=== PATIENT | male | born 1975 | race Caucasian/White ===

== ENCOUNTER 2016-06-11 07:42 | Emergency (ER) | payer SELFPAY ==
[~2016-06-11] VITALS: Ht 165.1 cm; Wt 96.3 kg
[2016-06-11 07:55] VITALS: BP 141/95; PULSE 62; RESP 16; TEMP 98.6; O2SAT 99
--- NOTE | 2016-06-11 08:45 | PD ---
HPI Chief Complaint: ENT Complaint Time Seen by Provider: 08:44 Travel History International Travel<30 days: No Contact w/Intl Traveler<30days: No Traveled to known affect area: No History of Present Illness HPI 40-year-old male came to the emergency room with history of sore throat since this morning. No history of vomiting or diarrhea. No history of fever or chills. He is eating and drinking okay. When he woke up he felt like he was having difficulty swallowing and breathing. Patient is otherwise healthy. He appears to be comfortable and in no obvious distress. He points to the upper part of his throat. Vitals were stable. FORMERLY [facility] Past Medical History Narrative Medical List of his past medical history is reviewed from the nursing note. Heart Rhythm Problems: No Cardiac Catheterization: No Cardiovascular Problems: No High Cholesterol: No Congestive Heart Failure: No Diabetes: No Diminished Hearing: No Hypertension: No Kidney Stones: Yes Integumentary: Yes (MRSA INFECTION 8 YEARS AGO IN LEG AND NOSE) Immunizations Current: Yes Myocardial Infarction: No PNEUMOCCOCAL Vaccine (Year): 1 Past Surgical History Coronary Artery Bypass Graft: No Oral Surgery: Yes (WISDOM TEETH) Other Surgery: Yes (hernia repair age 4) Family History Family Myocardial Infarction: Yes (MOTHER MO; BYPASS *3) Social History Alcohol Use: No Tobacco Use: No (QUIT 2000) Substance Use: No Allergies-Medications (Allergen,Severity, Reaction): Coded Allergies: Penicillin (Verified Allergy, Mild, ITCHING, 06/11/16) Comments List of his allergies reviewed from the nursing note. Reported Meds & Prescriptions Reported Meds & Active Scripts Active No Active Prescriptions or Reported Medications Narrative Medication List of his home medications reviewed from the nursing note. Review of Systems Except as stated in HPI: all other systems reviewed are Neg Physical Exam Narrative GENERAL: Awake, alert, no obvious distress SKIN: Warm and dry. HEAD: Atraumatic. Normocephalic. EYES: Pupils equal and round. No scleral icterus. No injection or drainage. ENT: No nasal bleeding or discharge. Mucous membranes pink and moist. No erythema or exudates. No lymphadenopathy, no tonsillar adenopathy NECK: Trachea midline. No JVD. CARDIOVASCULAR: Regular rate and rhythm. No murmur appreciated. RESPIRATORY: No accessory muscle use. Clear to auscultation. Breath sounds equal bilaterally. GASTROINTESTINAL: Abdomen soft, non-tender, nondistended. Hepatic and splenic margins not palpable. MUSCULOSKELETAL: No obvious deformities. No clubbing. No cyanosis. No edema. NEUROLOGICAL: Awake and alert. No obvious cranial nerve deficits. Motor grossly within normal limits. Normal speech. PSYCHIATRIC: Appropriate mood and affect; insight and judgment normal. Data Data Last Documented VS Vital Signs Date Time Temp Pulse Resp B/P Pulse Ox O2 Delivery O2 Flow Rate FiO2 06/11/16 07:55 98.6 62 16 141/95 99 Orders Throat Culture (06/11/16 08:50) MDM Medical Decision Making Medical Screen Exam Complete: Yes Emergency Medical Condition: Yes Medical Record Reviewed: Yes Differential Diagnosis Strep throat, URI, laryngitis, viral illness Narrative Course 8:45 AM I've collected the throat culture and explained to the patient that given his physical exam and symptoms there is no reason to [place] to treat him. He looks comfortable. If the culture is positive he will be called and started on antibiotics. I have a very low pretest probability given my exam of this being strep. I will discharge him home. He asked me if he could go back to work which was fine with me. Procedures EKG Prior to Arrival: No Diagnosis Primary Impression: Odynophagia Additional Impression: Sore throat Referrals: Primary Care Physician 2 days Additional Instructions: We will call you back if your throat culture is positive for strep. Drink warm liquids, tea with honey and lemon. Take Motrin/Advil/ibuprofen for the pain. Return to the ER if the condition worsens or any other new concerns. Otherwise follow-up with her primary care. Med/Other Pt SpecificInfo: No Change to Meds Scripts No Active Prescriptions or Reported Meds Disposition: 01 DISCHARGE HOME Condition: Stable Lina Freeman MD Jun 11, 2016 08:45 Lina Freeman MD Jun 11, 2016 08:45
== END 2016-06-11 09:12 | disposition home or self-care (01) ==
LOC: PHED 07:42 → PHEFT 09:12
DX: R13.10 Dysphagia, unspecified (principal); J02.9 Acute pharyngitis, unspecified
CPT/HCPCS: 87070; 99283

== ENCOUNTER 2016-11-18 18:07 | Emergency (ER) | payer OTHER ==
[~2016-11-18] VITALS: Ht 166.4 cm; Wt 96.0 kg
[2016-11-18 18:15] VITALS: BP 137/82; PULSE 69; RESP 16; TEMP 98.6; O2SAT 98
--- NOTE | 2016-11-18 18:36 | PD ---
HPI Chief Complaint: Pain: Acute or Chronic Time Seen by Provider: 18:36 Travel History International Travel<30 days: No Contact w/Intl Traveler<30days: No Traveled to known affect area: No History of Present Illness HPI 41-year-old male presents emergency Department with ongoing left knee pain, stiffness, and swelling. Patient states started approximately 2 weeks ago without any specific injury. He states it feels like it gives out occasionally. No significant history to this knee other than an infection years ago that required draining of the joint. He denies any specific injury recently. He states it seemed to get better after about a week but that has come back in the last 4 days. Patient states it's worse with ambulation by the end of the day. Pain is at worst an 8 out of 10. He denies fever, chills, or other symptoms. He has not been trying anything other than ice. He has allergies to penicillin. PFSH Past Medical History Hx Anticoagulant Therapy: No Heart Rhythm Problems: No Cardiac Catheterization: No Cardiovascular Problems: No High Cholesterol: No Congestive Heart Failure: No Diabetes: No Diminished Hearing: No Hypertension: No Kidney Stones: Yes Integumentary: Yes (MRSA INFECTION 8 YEARS AGO IN LEG AND NOSE) Immunizations Current: Yes Myocardial Infarction: No PNEUMOCCOCAL Vaccine (Year): 1 Past Surgical History Coronary Artery Bypass Graft: No Oral Surgery: Yes (WISDOM TEETH) Other Surgery: Yes (hernia repair age 4) Social History Alcohol Use: No Tobacco Use: No (QUIT 2000) Substance Use: No Allergies-Medications (Allergen,Severity, Reaction): Coded Allergies: Penicillin (Verified Allergy, Mild, ITCHING, 11/18/16) Reported Meds & Prescriptions Reported Meds & Active Scripts Active No Active Prescriptions or Reported Medications Review of Systems Except as stated in HPI: all other systems reviewed are Neg General / Constitutional: No: Fever Eyes: No: Visual changes HENT: No: Headaches Cardiovascular: No: Chest Pain or Discomfort Respiratory: No: Shortness of Breath Gastrointestinal: No: Abdominal Pain Genitourinary: No: Dysuria Musculoskeletal: Positive: Arthralgias, Pain Skin: No Rash Neurologic: No: Weakness Psychiatric: No: Depression Endocrine: No: Polydipsia Hematologic/Lymphatic: No: Easy Bruising Physical Exam Narrative GENERAL: Patient appears in no acute distress per SKIN: Warm and dry. Normal color. Normal turgor. HEAD: Atraumatic. Normocephalic. EYES: Pupils equal and round. No scleral icterus. No injection or drainage. ENT: No nasal bleeding or discharge. Mucous membranes pink and moist. NECK: Trachea midline. Supple and nontender. CARDIOVASCULAR: Regular rate and rhythm. RESPIRATORY: No accessory muscle use. Clear to auscultation. Breath sounds equal bilaterally. MUSCULOSKELETAL: Extremities without clubbing, cyanosis, or edema. No obvious deformities. Patient has mild effusion to the left knee mainly in the medial aspect and above the patella. Negative Lackman's test is noted. There is no significant laxity or increased pain with varus or valgus stress. Strength is intact. Neurovascular exam is intact. NEUROLOGICAL: Awake and alert. No obvious cranial nerve deficits. Motor grossly within normal limits. Five out of 5 muscle strength in the arms and legs. Normal speech. PSYCHIATRIC: Appropriate mood and affect; insight and judgment normal. Data Data Last Documented VS Vital Signs Date Time Temp Pulse Resp B/P Pulse Ox O2 Delivery O2 Flow Rate FiO2 11/18/16 18:15 98.6 69 16 137/82 98 Orders Splint Or Brace Apply/Monitor (11/18/16 18:44) [facility] Medical Decision Making Medical Screen Exam Complete: Yes Emergency Medical Condition: Yes Differential Diagnosis Left knee pain. Left knee effusion. Left knee stiffness. Narrative Course Radiographic imaging is not felt warranted at this time. Patient will be placed in a knee immobilizer as discussed. Patient is given ibuprofen 600 mg 4 times a day #40. She is to ice the area frequently to the next week. Patient follow with orthopedic if symptoms do not improve as discussed. Diagnosis Primary Impression: Effusion, left knee Referrals: Sriram Silva MD as needed Patient Instructions: General Instructions, Knee Immobilizer (ED), Knee Pain ( ED) Additional Instructions: Radiographic imaging is not felt warranted at this time. Patient will be placed in a knee immobilizer as discussed. Patient is given ibuprofen 600 mg 4 times a day #40. She is to ice the area frequently to the next week. Patient follow with orthopedic if symptoms do not improve as discussed. Med/Other Pt SpecificInfo: Prescription(s) given Scripts Ibuprofen 600 Mg [id number] Mg PO Q6H PRN (Pain/Inflammation) #40 TAB Prov:Gucci Zavala MD 11/18/16 Disposition: 01 DISCHARGE HOME Condition: Stable Rizwan Haji Nov 18, 2016 18:36 Rizwan Haji Nov 18, 2016 18:36
[2016-11-18] MEDS ORDERED: IBUP-232 PO (18:50)
== END 2016-11-18 19:34 | disposition home or self-care (01) ==
LOC: PHED 18:07
DX: M25.462 Effusion, left knee (principal); Z86.14 Personal history of Methicillin resistant Staphylococcus aureus infection; Z87.442 Personal history of urinary calculi
CPT/HCPCS: 99282; L1830